=== PATIENT | male | born 1940 | race Caucasian/White ===

== ENCOUNTER 2016-02-28 06:46 | Day surgery (SDC) | payer MEDICARE, OTHER ==
[~2016-02-28] VITALS: Ht 172.7 cm; Wt 109000.0 kg
[2016-02-28] VITALS (8 sets, daily range): BP systolic 103–175; BP diastolic 48–91
[~2016-02-28 06:46] MED LIST: HYDR-3754 PO; INDA1.25 PO; LACTATED RINGERS 1,000 ML IV SCH; LSNP20T PO; SODIUM CHLORIDE FLUSH 3 ML SYR IV PRN
[2016-02-28] MEDS ORDERED: PROPOFOL 20 ML IV ONE (08:02)
[2016-02-28] MEDS ORDERED: ALFENTANIL 500 MCG/ML (ALFENTA) 5 ML AMP IV ONE (08:02)
[2016-02-28] MEDS ORDERED: MIDAZOLAM 2 MG/2 ML (VERSED) VIAL ONE (08:02)
--- NOTE | 2016-02-28 10:36 | OPERATIVE REPORT ---
DATE OF OPERATION: 02/28/2016 PRE-OPERATIVE DIAGNOSIS: Adenomatous colon polyp POST-OPERATIVE DIAGNOSIS: Sigmoid diverticulosis OPERATIVE PROCEDURE: Total colonoscopy SURGEON: Mark Ward MD ANESTHESIA: Monitored anesthesia care FINDINGS: 1. The bowel prep was fair. There was some liquid and particulate matter throughout the colon in dependent areas that had to be irrigated and suctioned in order to see. The exam was considered adequate. 2. No neoplasia, angiodysplasia, or inflammation was seen. 3. There were diverticula seen throughout the sigmoid colon. INDICATIONS: The patient is a 76-year-old referred by Dr. Diallo who is here for his 5-year interval colonoscopy after he was found to have an adenomatous colon polyp in 2010. He presents today for this procedure. DESCRIPTION OF PROCEDURE: The patient was informed of the risks and benefits and agreed to proceed. He was placed in the left lateral decubitus and administered IV sedation. When properly sedated a rectal exam was performed, which was normal. The lighted endoscope was passed into the rectum and slowly advanced along the colon to the cecum. The ileal cecal valve and appendiceal orifice was seen. The scope was slowly brought back through the ascending, transverse, descending and sigmoid colon. No polyps or neoplasia were noted. Diverticula were seen in the sigmoid region. The rectum appeared normal on regular view and retroflexion. The scope was removed completing the procedure. The patient tolerated the procedure without complications.
== END 2016-02-28 11:45 | disposition home or self-care (01) ==
LOC: ASC 06:46
PROVIDERS: ATTEND Surgery
PROC: 0DJD8ZZ Inspection of Lower Intestinal Tract, Via Natural or Artificial Opening Endoscopic (ICD-10-PCS; principal; 2016-02-28)
DX: K57.30 Diverticulosis of large intestine without perforation or abscess without bleeding (principal); Z86.010 Personal history of colon polyps; I10 Essential (primary) hypertension; E66.9 Obesity, unspecified; Z68.38 Body mass index [BMI] 38.0-38.9, adult
CPT/HCPCS: 45378; J2250; J7120